=== PATIENT | male | born 1955 | race African-American/Black ===

== ENCOUNTER 2019-12-13 18:17 | Inpatient (IN) ==
[2019-12-13 21:43] LABS: ABG Base Excess -2.6 MMOL/L (-2.5-2.5); ABG HCO3 22.2 MMOL/L (20-26); ABG Oxygen Saturation 99.1 % (95-100); ABG PCO2 44.6 MM HG (35-48); ABG PH 7.328 (7.35-7.45); ABG TCO2 21.1 MMOL/L (23-27)
[2019-12-13] MEDS ORDERED: SODIUM BICARBONATE 50 MEQ/50 ML VIAL IV ONE ×2 (21:49→21:51)
[2019-12-13] MEDS ORDERED: ONDANSETRON 4 MG/2 ML VIAL IV PRN (21:53)
[2019-12-13] MEDS ORDERED: GLUCAGON 1 MG VIAL IM PRN (21:53)
[2019-12-13] MEDS ORDERED: DEXTROSE 50% 25 GM/50 ML VIAL IV PRN (21:53)
[2019-12-13] MEDS ORDERED: SODIUM CHLORIDE 0.9% 1,000 ML IV SCH (22:00)
[2019-12-13] MEDS ORDERED: dilTIAZem Drip 125 MG/125 ML PREMIX IV SCH (22:30)
[2019-12-13] MEDS: ENOXAPARIN 30 MG/0.3 ML SYRINGE SUBCUT SCH (23:06)
[2019-12-13 23:18] LABS: Albumin 2.2 G/DL (3.4-5.0); Bilirubin,Total 0.8 MG/DL (0.2-1.0); CKMB % 6.9 %; Calcium 7.9 MG/DL (8.5-10.1); Ferritin 77.8 ng/ml (26-388); Osmolality,Calculated 282.4 MOS/KG (273-304)
[2019-12-13] MEDS: carvediloL 6.25 MG TABLET PO SCH (23:19)
[2019-12-13 23:20] LABS: Troponin I 0.078 NG/ML (0.00-0.045)
[2019-12-13 23:36] LABS: Basophils % 0.4 % (0.0-0.8); Eosinophils % 1.6 % (0.00-10.9); Hematocrit 35.3 VOL% (42.0-52.0); Immature Granulocytes % 0.4 %; Immature Granulocytes Absolute 0.01 #; Lymphocytes # 0.6 10*3/uL (1.4-4.0); Lymphocytes % 22.5 % (21.2-54.2); Mean Corpuscular HGB Conc 31.2 GM/DL (32-36); Mean Corpuscular Volume 96.2 FL (87-102); Mean Platelet Volume 10.3 FL (9.6-12.0); Monocytes % 14.3 % (1.7-12.7); Neutrophils % 60.8 % (38.7-73.9); Platelet Count 125 T/CUMM (130-400); Red Blood Count 3.67 MC/CUMM (3.8-5.5); Red Cell Distribution Width 16.6 % (9.3-17.3); White Blood Count 2.6 T/CUMM (4-12)
[2019-12-14] MEDS: ALBUTEROL/IPRATROPIUM 3 ML NEB RESP TX SCH ×4 (01:52→19:55)
[2019-12-14 04:43] LABS: Allen Test Positive; Pt O2 Delivery Device Ventilator
[2019-12-14 04:44] LABS: ABG Base Excess -0.4 MMOL/L (-2.5-2.5); ABG HCO3 24.8 MMOL/L (20-26); ABG PCO2 42.9 MM HG (35-48); ABG PH 7.379 (7.35-7.45); ABG PO2 117.9 MM HG (80-95); ABG TCO2 26.1 MMOL/L (23-27)
[2019-12-14 05:40] LABS: Basophils % 0.5 % (0.0-0.8); Eosinophils % 0.9 % (0.00-10.9); Hematocrit 30.1 VOL% (42.0-52.0); Hemoglobin 9.4 GM/DL (14.0-18.0); Immature Granulocytes % 0.2 %; Immature Granulocytes Absolute 0.01 #; Lymphocytes # 0.5 10*3/uL (1.4-4.0); Lymphocytes % 10.6 % (21.2-54.2); Mean Corpuscular HGB Conc 31.2 GM/DL (32-36); Mean Corpuscular Volume 95.3 FL (87-102); Mean Platelet Volume 10.5 FL (9.6-12.0); Monocytes % 10.6 % (1.7-12.7); Neutrophils % 77.2 % (38.7-73.9); Platelet Count 111 T/CUMM (130-400); Red Blood Count 3.16 MC/CUMM (3.8-5.5); Red Cell Distribution Width 16.4 % (9.3-17.3); White Blood Count 4.3 T/CUMM (4-12)
[2019-12-14 06:13] LABS: Apearance,Urine CLOUDY (Clear); Bacteria,Urine Many /HPF (Few); Bilirubin,Urine Negative (Negative); Blood, Urine Moderate mg/dL (Negative); Glucose,Urine (UA) Negative (Negative); Ketones,Urine Negative (Negative); Mucus,Urine Few /LPF (Occasional); Nitrite,Urine Negative (Negative); Protein,Urine >=500 MG/DL; RBC,Urine 114 /HPF (0-4); Squamous Epithelial Cell,Urine Occasional /HPF (0-10); Triple Phosphate Crystal,Urine Few /HPF (Few); Urine Color Amber (Yellow); Urine Specific Gravity 1.015 (1.001-1.035); Urine Urobilinogen < 2.0 EU/DL (0.2-1.0); WBC,Urine 35 /HPF (0-6)
[2019-12-14 06:35] LABS: Osmolality,Calculated 287.1 MOS/KG (273-304); Risk Ratio 2.73; Thyroid Stimulating Hormone 3.13 uIU/ml (0.358-3.74); VLDL CHOLESTEROL 15.6 MG/DL
[2019-12-14] MEDS: carvediloL 6.25 MG TABLET PO SCH ×2 (08:05→16:55)
[2019-12-14] MEDS: PANTOPRAZOLE 40 MG VIAL IV SCH (08:21)
[2019-12-14 11:24] LABS: Hepatitis B Core IgM Quant 0.22 Index; Hepatitis B Surface Ag Quant < 0.10 Index; Hepatitis B Surface Ag Result Negative (Negative); Hepatitis C Virus Ab Quant 0.08 Index; Hepatitis C Virus Ab Result Negative (Negative)
[2019-12-14] MEDS: ENOXAPARIN 30 MG/0.3 ML SYRINGE SUBCUT SCH (22:10)
[2019-12-15] MEDS: ALBUTEROL/IPRATROPIUM 3 ML NEB RESP TX SCH ×4 (00:10→20:15)
[2019-12-15 04:35] LABS: ABG Base Excess 2.3 MMOL/L (-2.5-2.5); ABG HCO3 26.5 MMOL/L (20-26); ABG Oxygen Saturation 99.1 % (95-100); ABG PH 7.466 (7.35-7.45); ABG TCO2 23.9 MMOL/L (23-27); Allen Test Positive; Pt O2 Delivery Device Ventilator
[2019-12-15 04:38] LABS: Calcium 8.2 MG/DL (8.5-10.1); Osmolality,Calculated 287.3 MOS/KG (273-304)
[2019-12-15] MEDS: PANTOPRAZOLE 40 MG VIAL IV SCH (09:04)
[2019-12-15] MEDS: carvediloL 6.25 MG TABLET PO SCH (09:04)
[2019-12-15] MEDS ORDERED: ALBUMIN 25% 12.5 GM in PREMIX 1 EACH IV PRN (09:35)
[2019-12-15] MEDS ORDERED: HEPARIN 10,000 UNIT/10 ML VIAL IV PRN (09:37)
[2019-12-15] MEDS ORDERED: POTASSIUM CHLORIDE 20 MEQ/15 ML UDCUP PO ONE (15:50)
[2019-12-15] MEDS: ASPIRIN CHEW 81 MG TABLET PO SCH (17:00)
[2019-12-15] MEDS: ENOXAPARIN 30 MG/0.3 ML SYRINGE SUBCUT SCH (21:08)
[2019-12-15] MEDS: ASCORBIC ACID 500 MG TABLET NG SCH (21:08)
[2019-12-16] MEDS: ALBUTEROL/IPRATROPIUM 3 ML NEB RESP TX SCH ×4 (00:52→20:34)
[2019-12-16 04:00] LABS: Basophils % 0.7 % (0.0-0.8); Eosinophils # 0.2 10*3/uL (0.0-0.87); Eosinophils % 7.8 % (0.00-10.9); Hematocrit 28.4 VOL% (42.0-52.0); Immature Granulocytes % 0.4 %; Immature Granulocytes Absolute 0.01 #; Lymphocytes # 0.7 10*3/uL (1.4-4.0); Lymphocytes % 24.7 % (21.2-54.2); Mean Corpuscular HGB Conc 31.7 GM/DL (32-36); Mean Corpuscular Volume 93.4 FL (87-102); Mean Platelet Volume 10.9 FL (9.6-12.0); Monocytes % 16.6 % (1.7-12.7); Neutrophils % 49.8 % (38.7-73.9); Platelet Count 94 T/CUMM (130-400); Red Blood Count 3.04 MC/CUMM (3.8-5.5); Red Cell Distribution Width 16.8 % (9.3-17.3); White Blood Count 2.8 T/CUMM (4-12)
[2019-12-16 04:13] LABS: Calcium 8.5 MG/DL (8.5-10.1); Osmolality,Calculated 283.3 MOS/KG (273-304); Prealbumin 9.4 MG/DL (20-40)
[2019-12-16 04:15] LABS: Allen Test Positive; Pt O2 Delivery Device Ventilator
[2019-12-16 04:17] LABS: ABG Base Excess 4.1 MMOL/L (-2.5-2.5); ABG HCO3 28.1 MMOL/L (20-26); ABG Oxygen Saturation 99.2 % (95-100); ABG PCO2 37.5 MM HG (35-48); ABG PH 7.478 (7.35-7.45); ABG TCO2 25.3 MMOL/L (23-27)
[2019-12-16 04:42] LABS: Eosinophils 13 % (0-10); Lymphocytes 22 % (20-55); Platelet Estimate Decreased; Segmented Neutrophils 57 % (50-85); Total Cells Counted 100
[2019-12-16 04:43] LABS: Hypochromasia 1+; Ovalocytes Slight
[2019-12-16] MEDS ORDERED: POTASSIUM CHLORIDE 20 MEQ/15 ML UDCUP NG ONE (07:38)
[2019-12-16] MEDS ORDERED: MAGNESIUM SULF RIDER 2 GM in PREMIX 1 EACH IV ONE (07:38)
[2019-12-16] MEDS: PANTOPRAZOLE 40 MG VIAL IV SCH (09:33)
[2019-12-16] MEDS: ASCORBIC ACID 500 MG TABLET NG SCH ×2 (09:33→20:00)
[2019-12-16] MEDS: ASPIRIN CHEW 81 MG TABLET PO SCH (09:33)
[2019-12-16] MEDS: APIXABAN 2.5 MG TABLET PO SCH ×2 (09:33→20:00)
[2019-12-16] MEDS: carvediloL 6.25 MG TABLET PO SCH ×2 (15:09→20:00)
[2019-12-17] MEDS: ALBUTEROL/IPRATROPIUM 3 ML NEB RESP TX SCH ×4 (01:44→19:23)
[2019-12-17 04:16] LABS: Basophils % 0.4 % (0.0-0.8); Eosinophils # 0.3 10*3/uL (0.0-0.87); Eosinophils % 5.5 % (0.00-10.9); Hematocrit 31.2 VOL% (42.0-52.0); Hemoglobin 9.4 GM/DL (14.0-18.0); Immature Granulocytes % 0.2 %; Immature Granulocytes Absolute 0.01 #; Lymphocytes % 16.9 % (21.2-54.2); Mean Corpuscular HGB Conc 30.1 GM/DL (32-36); Mean Corpuscular Volume 97.8 FL (87-102); Mean Platelet Volume 10.5 FL (9.6-12.0); Monocytes % 13.2 % (1.7-12.7); NRBC # 0.02 10*3/uL; Neutrophils % 63.8 % (38.7-73.9); Platelet Count 99 T/CUMM (130-400); Red Blood Count 3.19 MC/CUMM (3.8-5.5); Red Cell Distribution Width 17.1 % (9.3-17.3); White Blood Count 5.7 T/CUMM (4-12)
[2019-12-17 04:37] LABS: Calcium 8.3 MG/DL (8.5-10.1); Osmolality,Calculated 287.4 MOS/KG (273-304)
[2019-12-17 05:15] LABS: Eosinophils 9 % (0-10); Lymphocytes 14 % (20-55); Segmented Neutrophils 72 % (50-85); Total Cells Counted 100
[2019-12-17 05:16] LABS: Anisocytosis 1+; Hypochromasia 1+; Macrocytosis 1+
[2019-12-17] MEDS: PANTOPRAZOLE 40 MG VIAL IV SCH (08:33)
[2019-12-17] MEDS: ASPIRIN CHEW 81 MG TABLET PO SCH (08:33)
[2019-12-17] MEDS: ASCORBIC ACID 500 MG TABLET NG SCH ×2 (08:33→21:19)
[2019-12-17] MEDS: APIXABAN 2.5 MG TABLET PO SCH ×2 (08:33→21:19)
[2019-12-17] MEDS: carvediloL 6.25 MG TABLET PO SCH ×2 (08:33→21:19)
[2019-12-18] MEDS: ALBUTEROL/IPRATROPIUM 3 ML NEB RESP TX SCH ×4 (00:13→19:48)
[2019-12-18 06:52] LABS: Basophils % 0.6 % (0.0-0.8); Eosinophils # 0.2 10*3/uL (0.0-0.87); Eosinophils % 4.4 % (0.00-10.9); Hemoglobin 8.9 GM/DL (14.0-18.0); Immature Granulocytes % 0.2 %; Immature Granulocytes Absolute 0.01 #; Lymphocytes % 20.7 % (21.2-54.2); Mean Corpuscular HGB Conc 29.7 GM/DL (32-36); Mean Corpuscular Volume 100.3 FL (87-102); Mean Platelet Volume 10.6 FL (9.6-12.0); Monocytes % 15.6 % (1.7-12.7); Neutrophils % 58.5 % (38.7-73.9); Platelet Count 89 T/CUMM (130-400); Red Blood Count 2.99 MC/CUMM (3.8-5.5); Red Cell Distribution Width 16.4 % (9.3-17.3); White Blood Count 4.7 T/CUMM (4-12)
[2019-12-18 07:09] LABS: Calcium 8.1 MG/DL (8.5-10.1); Osmolality,Calculated 278.8 MOS/KG (273-304)
[2019-12-18 07:18] LABS: Eosinophils 5 % (0-10); Lymphocytes 21 % (20-55); Nucleated Red Blood Cells 1 (0-5); Segmented Neutrophils 59 % (50-85); Total Cells Counted 100
[2019-12-18 07:19] LABS: Hypochromasia 1+; Macrocytosis Slight; Platelet Estimate Decreased
[2019-12-18 07:25] LABS: Calcium 8.3 MG/DL (8.5-10.1)
[2019-12-18] MEDS: ASCORBIC ACID 500 MG TABLET NG SCH ×2 (09:36→21:17)
[2019-12-18] MEDS: carvediloL 6.25 MG TABLET PO SCH ×2 (09:36→21:17)
[2019-12-18] MEDS: APIXABAN 2.5 MG TABLET PO SCH ×2 (09:36→21:17)
[2019-12-18] MEDS: ASPIRIN CHEW 81 MG TABLET PO SCH (09:36)
[2019-12-18] MEDS: PANTOPRAZOLE 40 MG VIAL IV SCH (09:37)
[2019-12-19] MEDS: ALBUTEROL/IPRATROPIUM 3 ML NEB RESP TX SCH ×4 (00:44→20:03)
[2019-12-19 06:21] LABS: Basophils % 0.8 % (0.0-0.8); Eosinophils # 0.2 10*3/uL (0.0-0.87); Eosinophils % 4.9 % (0.00-10.9); Hematocrit 29.9 VOL% (42.0-52.0); Hemoglobin 9.3 GM/DL (14.0-18.0); Immature Granulocytes % 0.2 %; Immature Granulocytes Absolute 0.01 #; Lymphocytes % 20.7 % (21.2-54.2); Mean Corpuscular HGB Conc 31.1 GM/DL (32-36); Mean Corpuscular Volume 96.5 FL (87-102); Mean Platelet Volume 11.6 FL (9.6-12.0); Monocytes % 16.5 % (1.7-12.7); Neutrophils % 56.9 % (38.7-73.9); Platelet Count 96 T/CUMM (130-400); Red Cell Distribution Width 16.5 % (9.3-17.3); White Blood Count 4.7 T/CUMM (4-12)
[2019-12-19 06:56] LABS: Eosinophils 4 % (0-10); Lymphocytes 20 % (20-55); Segmented Neutrophils 66 % (50-85); Total Cells Counted 100
[2019-12-19 06:57] LABS: Burr Cells Slight; Hypochromasia 1+; Ovalocytes Slight; Platelet Estimate Decreased
[2019-12-19 06:58] LABS: Macrocytosis Slight
[2019-12-19 07:01] LABS: Calcium 8.4 MG/DL (8.5-10.1)
[2019-12-19 07:03] LABS: Calcium 8.4 MG/DL (8.5-10.1)
[2019-12-19] MEDS: ASPIRIN CHEW 81 MG TABLET PO SCH (08:29)
[2019-12-19] MEDS: ASCORBIC ACID 500 MG TABLET NG SCH ×2 (08:29→21:41)
[2019-12-19] MEDS: APIXABAN 2.5 MG TABLET PO SCH ×2 (08:30→21:41)
[2019-12-19] MEDS: carvediloL 6.25 MG TABLET PO SCH ×2 (08:30→21:41)
[2019-12-19] MEDS: PANTOPRAZOLE 40 MG VIAL IV SCH (08:30)
[2019-12-20] MEDS: ALBUTEROL/IPRATROPIUM 3 ML NEB RESP TX SCH ×4 (00:26→19:04)
[2019-12-20 05:21] LABS: Basophils # 0.1 10*3/uL (0.0-0.2); Basophils % 1.1 % (0.0-0.8); Eosinophils # 0.2 10*3/uL (0.0-0.87); Eosinophils % 3.9 % (0.00-10.9); Hematocrit 30.2 VOL% (42.0-52.0); Hemoglobin 9.4 GM/DL (14.0-18.0); Immature Granulocytes % 0.4 %; Immature Granulocytes Absolute 0.02 #; Lymphocytes # 0.9 10*3/uL (1.4-4.0); Lymphocytes % 18.7 % (21.2-54.2); Mean Corpuscular HGB Conc 31.1 GM/DL (32-36); Mean Corpuscular Volume 95.9 FL (87-102); Mean Platelet Volume 11.3 FL (9.6-12.0); Neutrophils % 58.9 % (38.7-73.9); Platelet Count 106 T/CUMM (130-400); Red Blood Count 3.15 MC/CUMM (3.8-5.5); Red Cell Distribution Width 16.3 % (9.3-17.3); White Blood Count 4.7 T/CUMM (4-12)
[2019-12-20 05:54] LABS: Calcium 8.6 MG/DL (8.5-10.1); Osmolality,Calculated 286.1 MOS/KG (273-304)
[2019-12-20 05:59] LABS: Eosinophils 3 % (0-10); Hypochromasia 1+; Lymphocytes 20 % (20-55); Macrocytosis Slight; Ovalocytes Slight; Platelet Estimate Decreased; Segmented Neutrophils 63 % (50-85); Total Cells Counted 100
[2019-12-20 06:06] LABS: Calcium 8.6 MG/DL (8.5-10.1); Osmolality,Calculated 284.2 MOS/KG (273-304)
[2019-12-20] MEDS: ASPIRIN CHEW 81 MG TABLET PO SCH (11:12)
[2019-12-20] MEDS: ASCORBIC ACID 500 MG TABLET NG SCH ×2 (11:12→22:41)
[2019-12-20] MEDS: APIXABAN 2.5 MG TABLET PO SCH ×2 (11:12→22:41)
[2019-12-20] MEDS: PANTOPRAZOLE 40 MG VIAL IV SCH (11:14)
[2019-12-20] MEDS: carvediloL 6.25 MG TABLET PO SCH (11:17)
[2019-12-20] MEDS: carvediloL 12.5 MG TABLET PO SCH (22:41)
[2019-12-21] MEDS: ALBUTEROL/IPRATROPIUM 3 ML NEB RESP TX SCH ×4 (00:28→19:02)
[2019-12-21 05:38] LABS: Basophils % 0.8 % (0.0-0.8); Eosinophils # 0.2 10*3/uL (0.0-0.87); Eosinophils % 3.6 % (0.00-10.9); Hematocrit 28.2 VOL% (42.0-52.0); Hemoglobin 8.9 GM/DL (14.0-18.0); Immature Granulocytes % 0.2 %; Immature Granulocytes Absolute 0.01 #; Lymphocytes # 1.2 10*3/uL (1.4-4.0); Lymphocytes % 23.8 % (21.2-54.2); Mean Corpuscular HGB Conc 31.6 GM/DL (32-36); Mean Corpuscular Volume 95.9 FL (87-102); Mean Platelet Volume 10.6 FL (9.6-12.0); Monocytes % 21.6 % (1.7-12.7); Platelet Count 106 T/CUMM (130-400); Red Blood Count 2.94 MC/CUMM (3.8-5.5); Red Cell Distribution Width 16.2 % (9.3-17.3)
[2019-12-21 06:02] LABS: Calcium 8.7 MG/DL (8.5-10.1)
[2019-12-21 06:16] LABS: Atypical Lymphocytes Few; Band Neutrophils 1 % (0-10); Eosinophils 5 % (0-10); Hypochromasia 1+; Lymphocytes 24 % (20-55); Segmented Neutrophils 55 % (50-85); Total Cells Counted 100
[2019-12-21 06:17] LABS: Anisocytosis 1+; Macrocytosis 1+; Ovalocytes Slight; Platelet Estimate Decreased
[2019-12-21] MEDS: carvediloL 12.5 MG TABLET PO SCH ×2 (08:32→22:49)
[2019-12-21] MEDS: ASPIRIN CHEW 81 MG TABLET PO SCH (08:32)
[2019-12-21] MEDS: APIXABAN 2.5 MG TABLET PO SCH ×2 (08:32→22:49)
[2019-12-21] MEDS: ASCORBIC ACID 500 MG TABLET NG SCH ×2 (08:32→22:49)
[2019-12-21] MEDS: PANTOPRAZOLE 40 MG VIAL IV SCH (08:33)
[2019-12-22] MEDS: ALBUTEROL/IPRATROPIUM 3 ML NEB RESP TX SCH ×4 (01:09→19:17)
[2019-12-22 06:03] LABS: Eosinophils # 0.1 10*3/uL (0.0-0.87); Eosinophils % 3.3 % (0.00-10.9); Hematocrit 27.4 VOL% (42.0-52.0); Hemoglobin 8.8 GM/DL (14.0-18.0); Immature Granulocytes % 0.3 %; Immature Granulocytes Absolute 0.01 #; Lymphocytes % 25.6 % (21.2-54.2); Mean Corpuscular HGB Conc 32.1 GM/DL (32-36); Mean Corpuscular Volume 94.5 FL (87-102); Mean Platelet Volume 10.8 FL (9.6-12.0); Monocytes % 17.8 % (1.7-12.7); Platelet Count 122 T/CUMM (130-400); Red Cell Distribution Width 16.2 % (9.3-17.3); White Blood Count 3.9 T/CUMM (4-12)
[2019-12-22 06:31] LABS: Calcium 8.8 MG/DL (8.5-10.1); Osmolality,Calculated 282.1 MOS/KG (273-304)
[2019-12-22 07:24] LABS: Band Neutrophils 3 % (0-10); Eosinophils 3 % (0-10); Lymphocytes 28 % (20-55); Segmented Neutrophils 49 % (50-85); Total Cells Counted 100
[2019-12-22 07:25] LABS: Hypochromasia Slight; Target Cells 1+
[2019-12-22 07:26] LABS: Acanthocytes Few; Anisocytosis 1+; Macrocytosis 1+
[2019-12-22 07:27] LABS: Platelet Estimate Decreased
[2019-12-22] MEDS: carvediloL 12.5 MG TABLET PO SCH (12:04)
[2019-12-22] MEDS: APIXABAN 2.5 MG TABLET PO SCH ×2 (12:04→21:29)
[2019-12-22] MEDS: ASPIRIN CHEW 81 MG TABLET PO SCH (12:04)
[2019-12-22] MEDS: ASCORBIC ACID 500 MG TABLET NG SCH ×2 (12:04→21:29)
[2019-12-22] MEDS: PANTOPRAZOLE 40 MG VIAL IV SCH (12:04)
[2019-12-22] MEDS: carvediloL 25 MG TABLET PO SCH (21:29)
[2019-12-23] MEDS: ALBUTEROL/IPRATROPIUM 3 ML NEB RESP TX SCH ×4 (00:48→19:06)
[2019-12-23] MEDS: carvediloL 25 MG TABLET PO SCH ×2 (09:10→21:36)
[2019-12-23] MEDS: ASCORBIC ACID 500 MG TABLET NG SCH ×2 (09:10→21:36)
[2019-12-23] MEDS: ASPIRIN CHEW 81 MG TABLET PO SCH (09:10)
[2019-12-23] MEDS: APIXABAN 2.5 MG TABLET PO SCH ×2 (09:10→21:36)
[2019-12-23] MEDS: PANTOPRAZOLE 40 MG VIAL IV SCH (09:11)
[2019-12-23] MEDS ORDERED: ceFAZolin 1,000 MG in SYRINGE 1 EACH IV ONE (11:32)
[2019-12-24] MEDS: ALBUTEROL/IPRATROPIUM 3 ML NEB RESP TX SCH ×4 (00:55→19:20)
[2019-12-24] MEDS ORDERED: LIDOCAINE 1%/EPI INJ 20 ML VIAL ONE (07:57)
[2019-12-24] MEDS ORDERED: BUPIVACAINE MPF 0.25% 30 ML VIAL ONE (07:57)
[2019-12-24] MEDS ORDERED: TISSUE ADHESIVE 1 EACH APPLICATOR TOP ONE (07:57)
[2019-12-24] MEDS ORDERED: HEPARIN 5,000 UNIT/1 ML VIAL ONE (07:57)
[2019-12-24] MEDS ORDERED: DEXMEDETOMIDINE 200 MCG/2 ML VIAL ONE (08:23)
[2019-12-24] MEDS ORDERED: SODIUM CHLORIDE 0.9% 250 ML IV SCH (08:30)
[2019-12-24 08:38] LABS: Calcium 8.7 MG/DL (8.5-10.1); Osmolality,Calculated 286.8 MOS/KG (273-304)
[2019-12-24] MEDS ORDERED: ceFAZolin 1,000 MG VIAL ONE (09:17)
[2019-12-24] MEDS: APIXABAN 2.5 MG TABLET PO SCH ×2 (09:54→21:33)
[2019-12-24] MEDS: ASPIRIN CHEW 81 MG TABLET PO SCH (09:54)
[2019-12-24] MEDS: carvediloL 25 MG TABLET PO SCH ×2 (09:54→21:33)
[2019-12-24] MEDS ORDERED: MIDAZOLAM 2 MG/2 ML VIAL ONE (09:54)
[2019-12-24] MEDS ORDERED: KETAMINE 500 MG/10 ML VIAL ONE (09:54)
[2019-12-24] MEDS: PANTOPRAZOLE 40 MG VIAL IV SCH (09:54)
[2019-12-24] MEDS: ASCORBIC ACID 500 MG TABLET NG SCH ×2 (09:55→21:33)
[2019-12-25] MEDS: ALBUTEROL/IPRATROPIUM 3 ML NEB RESP TX SCH ×2 (01:44→06:51)
[2019-12-25] MEDS: carvediloL 25 MG TABLET PO SCH (09:15)
[2019-12-25] MEDS: ASCORBIC ACID 500 MG TABLET NG SCH (09:15)
[2019-12-25] MEDS: APIXABAN 2.5 MG TABLET PO SCH (09:15)
[2019-12-25] MEDS: PANTOPRAZOLE 40 MG VIAL IV SCH (09:15)
[2019-12-25] MEDS: ASPIRIN CHEW 81 MG TABLET PO SCH (09:15)
[2019-12-25 12:02] VITALS: BP 100/68
== END 2019-12-25 13:32 | disposition swing bed (61) | DRG 640 ==
LOC: N.ICU 19:49 → SUATTDRO 19:49 → N.TELEN 12-17 13:08
PROVIDERS: ADMIT Internal Medicine; ATTEND Internal Medicine